=== PATIENT | female | born 1955 | race Caucasian/White ===

== ENCOUNTER → 2017-02-12 | Outpatient (CLI) | payer MEDICARE ==
--- NOTE | 2017-02-12 12:41 | REP ---
CHEST: Two views. COMPARISON: None. There is no evidence of acute infiltrate. No pleural effusion is seen. The heart is normal in size. The mediastinal silhouette is unremarkable. The visualized osseous structures are intact. There are degenerative changes of the spine. IMPRESSION: No acute pulmonary disease. Signed by Dipak Hamm MD 02/12/2017 05:25 P
== END ==
LOC: M LRY 11:54
PROVIDERS: ATTEND Physician Assistant
DX: R50.9 Fever, unspecified (principal)

== ENCOUNTER → 2017-02-12 | Outpatient (REF) | payer MEDICARE | LOC: M SFHCLERA 11:34 | PROVIDERS: ATTEND Physician Assistant | DX: R50.9 Fever, unspecified (principal) ==

== ENCOUNTER 2023-06-17 10:53 | Emergency (ER) | payer MEDICARE ==
[~2023-06-17] VITALS: Ht 160 cm; Wt 109.1 kg
[2023-06-17] MEDS ORDERED: ATOR1TAB19 (11:16)
[2023-06-17] MEDS ORDERED: TIMO0.5S20 (11:16)
[2023-06-17] MEDS ORDERED: FERR325T3 PO (11:16)
[2023-06-17] MEDS ORDERED: ARNU1INH (11:16)
[2023-06-17] MEDS ORDERED: OMEP40CA5 (11:16)
[2023-06-17] MEDS ORDERED: PRAZ2CAP (11:16)
[2023-06-17] MEDS ORDERED: BRIM0.2S13 (11:16)
[2023-06-17] MEDS ORDERED: LEXA1TAB (11:16)
[2023-06-17] MEDS ORDERED: MIRT1TAB15 PO (11:16)
[2023-06-17] MEDS ORDERED: XALA0.007 (11:16)
[2023-06-17 14:06] LABS: BASO % 0.6 % (0.0-1.0); EOS # 0.2 10^3/uL (0.0-0.5); EOS % 3.4 % (0.0-3.0); HEMATOCRIT 48.8 % (36.0-47.0); HEMOGLOBIN 15.5 g/dl (12.0-15.5); LYMPH # 2.4 10^3/uL (1.5-5.0); LYMPH % 36.3 % (24.0-44.0); MEAN CORPUSCULAR HEMOGLOBIN 29.9 pg (27.0-33.0); MEAN CORPUSCULAR HGB CONC 31.8 g/dl (32.0-36.5); MEAN CORPUSCULAR VOLUME 94.2 fl (80.0-96.0); MONO # 0.5 10^3/uL (0.0-0.8); MONO % 7.3 % (2.0-8.0); NEUTROPHILS # 3.4 10^3/uL (1.5-8.5); NEUTROPHILS % 52.2 % (36.0-66.0); PLATELET COUNT, AUTOMATED 229 10^3/uL (150-450); RED BLOOD COUNT 5.18 10^6/uL (4.00-5.40); WHITE BLOOD COUNT 6.5 10^3/uL (4.0-10.0)
[2023-06-17 14:33] LABS: LIPASE 31 U/L (12-53)
[2023-06-17 14:35] LABS: ALBUMIN 3.6 G/DL (3.2-5.2); ALKALINE PHOSPHATASE 76 U/L (46-116); ALT/SGPT 18 U/L (7.0-40); AST/SGOT 13 U/L (<34); BILIRUBIN,DIRECT 0.4 MG/DL (<0.4); BILIRUBIN,TOTAL 1.1 MG/DL (0.3-1.2); BLOOD UREA NITROGEN 12 MG/DL (9-23); CALCIUM LEVEL 8.8 MG/DL (8.3-10.6); CARBON DIOXIDE LEVEL 32 MMOL/L (20-31); CHLORIDE LEVEL 105 MMOL/L (98-107); GLOMERULAR FILTRATION RATE > 60.0 (>39); GLUCOSE, FASTING 102 MG/DL (74-106); POTASSIUM SERUM 3.9 MMOL/L (3.5-5.1); SODIUM LEVEL 145 MMOL/L (136-145); TOTAL PROTEIN 6.9 G/DL (5.7-8.2)
[2023-06-17 15:03] VITALS: BP 171/81; TEMP 97.5; O2SAT 98
[2023-06-17] MEDS ORDERED: BACT800T5 PO (15:13)
== END 2023-06-17 15:38 | disposition home or self-care (01) ==
LOC: M ED 10:53
DX: N30.01 Acute cystitis with hematuria (principal); I10 Essential (primary) hypertension; E11.9 Type 2 diabetes mellitus without complications; K21.9 Gastro-esophageal reflux disease without esophagitis; E78.5 Hyperlipidemia, unspecified; J44.9 Chronic obstructive pulmonary disease, unspecified; Z91.041 Radiographic dye allergy status; Z79.02 Long term (current) use of antithrombotics/antiplatelets; Z79.899 Other long term (current) drug therapy

== ENCOUNTER → 2023-07-25 | Outpatient (REF) | payer MEDICARE ==
[~2023-07-25] MED LIST: ARNU1INH; ATOR1TAB19; BACT800T5 PO; BRIM0.2S13; FERR325T3 PO; LEXA1TAB; MIRT1TAB15 PO; OMEP40CA5; PRAZ2CAP; TIMO0.5S20; XALA0.007
[2023-07-25 18:20] LABS: APPEARANCE, URINE CLOUDY (CLEAR); BACTERIA, URINE AUTO 1+ (NEGATIVE); BILIRUBIN, URINE AUTO NEGATIVE (NEGATIVE); BLOOD, URINE BLOOD NEGATIVE (NEGATIVE); COLOR, URINE YELLOW (YELLOW); GLUCOSE, URINE (UA) AUTO NEGATIVE (NEGATIVE); KETONE, URINE AUTO NEGATIVE (NEGATIVE); LEUKOCYTE ESTERASE, URINE AUTO 2+ (NEGATIVE); MUCUS, URINE SMALL (NEGATIVE); NITRITE, URINE AUTO NEGATIVE (NEGATIVE); PROTEIN, URINE AUTO NEGATIVE (NEGATIVE); RBC, URINE AUTO 3 /HPF (0-3); SPECIFIC GRAVITY URINE AUTO 1.021 (1.002-1.035); SQUAMOUS EPITHELIAL CELL UR AU 12 /HPF (0-6); UROBILINOGEN, URINE AUTO 0.2 mg/dL (0.0-2.0); WBC, URINE AUTO 9 /HPF (0-3)
== END ==
LOC: M SMT 17:12
PROVIDERS: ATTEND Physician Assistant
DX: R31.0 Gross hematuria (principal)

== ENCOUNTER 2023-08-23 07:09 | Day surgery (SDC) | payer MEDICARE ==
[~2023-08-23] VITALS: Ht 160 cm; Wt 110.6 kg
[~2023-08-23 07:09] MED LIST changes: +ALBU6.7H6 INH; -ARNU1INH; +ARNU1INH INH; -ATOR1TAB19; +ATOR1TAB19 PO; -BRIM0.2S13; +BRIM0.2S13 OU; +KP F1200 PO; -LEXA1TAB; +LEXA1TAB PO; +MIRT-10 PO; -OMEP40CA5; +OMEP40CA5 PO; -PRAZ2CAP; +PRAZ2CAP PO; +TRAV04OPD OU; +VITA200021 PO; +VITA500045 PO; -XALA0.007; +XALA0.007 OU
[2023-08-23] MEDS ORDERED: ceFAZolin SOD 2 GM in IV 1 EA IV ONE (07:10)
[2023-08-23] MEDS ORDERED: LR 1,000 ML IV SCH ×2 (08:00→11:15)
[2023-08-23] MEDS ORDERED: MIDAZOLAM INJ 2MG/2ML VIAL As Ordered ONE (10:10)
[2023-08-23] MEDS ORDERED: SUGAMMADEX SODIUM 500 MG/5 ML VIAL (BRIDION) As Ordered ONE (10:10)
[2023-08-23] MEDS ORDERED: propofoL 200 MG/20 ML VIAL As Ordered ONE (10:10)
[2023-08-23] MEDS ORDERED: ONDANSETRON 4MG 2ML VIAL As Ordered ONE (10:10)
[2023-08-23] MEDS ORDERED: LIDOCAINE 2% 100MG/5ML SDV (FOR ANES.) As Ordered ONE (10:10)
[2023-08-23] MEDS ORDERED: ROCURONIUM BROMIDE 50MG/5ML VIAL As Ordered ONE (10:10)
[2023-08-23] MEDS ORDERED: fentaNYL 100 MCG/2 ML INJECTION As Ordered ONE (10:10)
[2023-08-23] MEDS ORDERED: MEPERIDINE 25 MG/ML 1ML VIAL IV PRN (11:15)
[2023-08-23] MEDS ORDERED: ONDANSETRON 4MG 2ML VIAL IV PRN (11:15)
[2023-08-23] MEDS ORDERED: fentaNYL 100 MCG/2 ML INJECTION IV PRN (11:15)
[2023-08-23 12:56] VITALS: BP 138/68; TEMP 97.7; O2SAT 96
== END 2023-08-23 13:17 | disposition home or self-care (01) ==
LOC: M SDC 07:09
PROVIDERS: ATTEND Urology
DX: N30.90 Cystitis, unspecified without hematuria (principal); J44.9 Chronic obstructive pulmonary disease, unspecified; Z79.51 Long term (current) use of inhaled steroids; Z79.899 Other long term (current) drug therapy; I10 Essential (primary) hypertension; E78.5 Hyperlipidemia, unspecified; K21.9 Gastro-esophageal reflux disease without esophagitis; F41.9 Anxiety disorder, unspecified; F32.A Depression, unspecified; F43.10 Post-traumatic stress disorder, unspecified; Z91.041 Radiographic dye allergy status
CPT/HCPCS: 52234; 88305; J1100; J2250; J2405; J3010

== ENCOUNTER 2023-11-09 15:13 | Emergency (ER) | payer MEDICARE ==
[~2023-11-09] VITALS: Ht 160 cm; Wt 110.2 kg
[2023-11-09] MEDS ORDERED: AMOX875T2 (15:28)
[2023-11-09 16:03] LABS: BASO % 0.6 % (0.0-1.0); EOS # 0.3 10^3/uL (0.0-0.5); EOS % 4.4 % (0.0-3.0); HEMATOCRIT 44.8 % (36.0-47.0); HEMOGLOBIN 13.9 g/dl (12.0-15.5); LYMPH # 2.1 10^3/uL (1.5-5.0); LYMPH % 32.7 % (24.0-44.0); MEAN CORPUSCULAR HEMOGLOBIN 29.4 pg (27.0-33.0); MEAN CORPUSCULAR VOLUME 94.7 fl (80.0-96.0); MONO # 0.5 10^3/uL (0.0-0.8); MONO % 7.2 % (2.0-8.0); NEUTROPHILS # 3.5 10^3/uL (1.5-8.5); NEUTROPHILS % 54.8 % (36.0-66.0); PLATELET COUNT, AUTOMATED 293 10^3/uL (150-450); RED BLOOD COUNT 4.73 10^6/uL (4.00-5.40); WHITE BLOOD COUNT 6.4 10^3/uL (4.0-10.0)
[2023-11-09 16:37] LABS: LIPASE 37 U/L (12-53)
[2023-11-09 16:40] LABS: ALBUMIN 2.8 G/DL (3.2-5.2); ALKALINE PHOSPHATASE 69 U/L (46-116); ALT/SGPT 52 U/L (7.0-40); AST/SGOT 36 U/L (<34); BILIRUBIN,DIRECT 0.1 MG/DL (<0.4); BILIRUBIN,TOTAL 0.3 MG/DL (0.3-1.2); BLOOD UREA NITROGEN 11 MG/DL (9-23); CALCIUM LEVEL 9.2 MG/DL (8.3-10.6); CARBON DIOXIDE LEVEL 31 MMOL/L (20-31); CHLORIDE LEVEL 105 MMOL/L (98-107); CREATININE FOR GFR 0.61 MG/DL (0.55-1.30); GLOMERULAR FILTRATION RATE > 60.0 (>39); GLUCOSE, FASTING 176 MG/DL (74-106); POTASSIUM SERUM 4.4 MMOL/L (3.5-5.1); SODIUM LEVEL 140 MMOL/L (136-145); TOTAL PROTEIN 6.6 G/DL (5.7-8.2)
[2023-11-09] MEDS ORDERED: diphenhydrAMINE 50MG/ML VIAL IV ONE (18:00)
[2023-11-09] MEDS ORDERED: ISOVUE-370 76% 100ML VIAL As Ordered ONE (18:02)
[2023-11-09] MEDS ORDERED: CEPH500C PO (20:18)
[2023-11-09 20:31] VITALS: BP 140/68; TEMP 96.2; O2SAT 96
== END 2023-11-09 20:39 | disposition home or self-care (01) ==
LOC: M ED 15:13
DX: N30.00 Acute cystitis without hematuria (principal); K21.9 Gastro-esophageal reflux disease without esophagitis; J44.9 Chronic obstructive pulmonary disease, unspecified; Z91.041 Radiographic dye allergy status; Z79.2 Long term (current) use of antibiotics; Z79.02 Long term (current) use of antithrombotics/antiplatelets; Z79.52 Long term (current) use of systemic steroids; Z79.83 Long term (current) use of bisphosphonates; Z79.899 Other long term (current) drug therapy
CPT/HCPCS: 74177; 80048; 80076; 81001; 83690; 85025; 87088; 87186; 96374; 99284; J1200; Q9967

== ENCOUNTER → 2023-11-28 | Outpatient (REF) | payer MEDICARE ==
[~2023-11-28] MED LIST changes: +AMOX875T2; +CEPH500C PO
[2023-11-28 14:12] LABS: APPEARANCE, URINE HAZY (CLEAR); BACTERIA, URINE AUTO NEGATIVE (NEGATIVE); BILIRUBIN, URINE AUTO NEGATIVE (NEGATIVE); BLOOD, URINE BLOOD NEGATIVE (NEGATIVE); COLOR, URINE YELLOW (YELLOW); GLUCOSE, URINE (UA) AUTO NEGATIVE (NEGATIVE); KETONE, URINE AUTO NEGATIVE (NEGATIVE); LEUKOCYTE ESTERASE, URINE AUTO TRACE (NEGATIVE); NITRITE, URINE AUTO NEGATIVE (NEGATIVE); PROTEIN, URINE AUTO NEGATIVE (NEGATIVE); RBC, URINE AUTO 1 /HPF (0-3); SPECIFIC GRAVITY URINE AUTO 1.017 (1.002-1.035); SQUAMOUS EPITHELIAL CELL UR AU 6 /HPF (0-6); UROBILINOGEN, URINE AUTO 0.2 mg/dL (0.0-2.0); WBC, URINE AUTO 4 /HPF (0-3)
== END ==
LOC: M SMT 13:13
PROVIDERS: ATTEND Nurse Practitioner Family
DX: R31.9 Hematuria, unspecified (principal)